=== PATIENT | female | born 1995 ===

== ENCOUNTER 2022-04-13 16:55 | Emergency (ER) | payer SELFPAY ==
--- NOTE | 2022-04-13 18:38 | Emergency Department Report ---
ED Psych HPI - General Chief Complaint: Psych Stated Complaint: MENTAL HEALTH Time Seen by Provider: 04/13/22 18:18 Source: patient Mode of arrival: Ambulatory Limitations: Language Barrier (Kazakh-speaking helper/driver used) - History of Present Illness Initial Comments: 26-year-old female who is 15 weeks with her first child presents to the hospital for psychiatric evaluation after she expressed depression with suicidal ideation at her BUILDING SUPERINTENDENT appointment today. Medical records from OB clinic reviewed. at her BUILDING SUPERINTENDENT appointment today she was diagnosed with acute pyelonephritis, trichomonas, and vaginitis. She was discharged on Augmentin twice daily x5 days, Flagyl 500 mg twice daily x7 days. Patient was previously prescribed the following meds on April 01: Augmentin twice daily x7 days, terconazole 0.4% vaginal cream nightly x7 nights, and received IM dose of Rocephin. She has estimated gestational age of 15 weeks and 4 days and heart rate of 151. Pt has had ultrasounds performed during this and has several documented visits. Today patient endorsed suicidal ideation with plan to hang herself and has previous attempts in the past. She has not been diagnosed with a mental illness in the past. Patient states he felt a little depressed this morning and had thoughts of suicide but denies plan to hang herself. Patient denies suicidal ideation at this time. She denies physical complaints ob clinic [facility] - Related Data Allergies Allergy/AdvReac Type Severity Reaction Status Date / Time No Known Allergies Allergy Verified 04/13/22 22:32 ED Review of Systems ROS: Stated complaint: MENTAL HEALTH Other details as noted in HPI ED Past Medical Hx - Past Medical History Previous Medical History?: No ED Physical Exam - General Limitations: No Limitations, Language Barrier - Other Other exam information: General: No acute distress Head: Atraumatic Eyes: normal appearance ENT: Moist mucous membranes Neck: Normal appearance, no midline tenderness Chest: Clear to auscultation bilaterally CV: Regular rate and rhythm Abdomen: Soft, normal bowel sounds, nontender, nondistended, no rebound or guarding Back: Normal inspection Extremity: Normal inspection, full range of motion Neuro: Alert O x 3, no facial asymmetry, speech clear, no gross motor sensory deficit Psych: Appropriate behavior Skin: No rash ED Course Vital Signs 04/13/22 04/13/22 17:27 20:30 Temperature 98.1 F 98.5 F Pulse Rate 76 64 Respiratory 16 6 L Rate Blood Pressure 110/60 Blood Pressure 117/64 [Left] O2 Sat by Pulse 100 100 Oximetry ED Medical Decision Making - Lab Data Result diagrams: 04/13/22 18:20 04/13/22 18:20 Lab Results 04/13/22 04/13/22 04/13/22 Range/Units 18:20 18:20 18:20 WBC 10.3 (4.5-11.0) K/mm3 RBC 4.19 (3.65-5.03) M/mm3 Hgb 12.2 (10.1-14.3) gm/dl Hct 35.6 (30.3-42.9) % MCV 85 (79-97) fl MCH 29 (28-32) pg MCHC 34 (30-34) % RDW 13.5 (13.2-15.2) % Plt Count 210 (140-440) K/mm3 Lymph % (Auto) 20.1 (13.4-35.0) % Ray % (Auto) 4.8 (0.0-7.3) % Eos % (Auto) 3.0 (0.0-4.3) % Baso % (Auto) 0.4 (0.0-1.8) % Lymph # (Auto) 2.1 (1.2-5.4) K/mm3 Ray # (Auto) 0.5 (0.0-0.8) K/mm3 Eos # (Auto) 0.3 (0.0-0.4) K/mm3 Baso # (Auto) 0.0 (0.0-0.1) K/mm3 Seg Neutrophils % 71.7 H (40.0-70.0) % Seg Neutrophils # 7.4 (1.8-7.7) K/mm3 Sodium (137-145) mmol/L Potassium (3.6-5.0) mmol/L Chloride (98-107) mmol/L Carbon Dioxide (22-30) mmol/L Anion Gap mmol/L BUN (7-17) mg/dL Creatinine (0.6-1.2) mg/dL Estimated GFR ml/min BUN/Creatinine Ratio % Glucose (65-100) mg/dL Calcium (8.4-10.2) mg/dL HCG, Quant (0-4) mIU/mL Urine Color Yellow (Yellow) Urine Turbidity Turbid (Clear) Urine pH 6.0 (5.0-7.0) Ur Specific [place] 1.016 (1.003-1.030) Urine Protein 30 mg/dl (Negative) mg/dL Urine Glucose (UA) Neg (Negative) mg/dL Urine Ketones Neg (Negative) mg/dL Urine Blood Neg (Negative) Urine Nitrite Neg (Negative) Urine Bilirubin Neg (Negative) Urine Urobilinogen < 2 (<2.0) mg/dL Ur Leukocyte Esterase Lg (Negative) Urine WBC (Auto) 42.0 H (0.0-6.0) /HPF Urine RBC (Auto) 16.0 (0.0-6.0) /HPF U Epithel Cells (Auto) 78.0 H (0-13.0) /HPF Urine Bacteria (Auto) 2+ (Negative) /HPF Urine WBC Clumps 2+ /HPF Urine Mucus Few /HPF Urine Yeast (Budding) 3+ /HPF Salicylates (2.8-20.0) mg/dL Urine Opiates Screen Negative Urine Methadone Screen Negative Acetaminophen (10.0-30.0) ug/mL Ur Barbiturates Screen Negative Ur Phencyclidine Scrn Negative Ur Amphetamines Screen Negative U Benzodiazepines Scrn Negative Urine Cocaine Screen Negative U Marijuana (THC) Screen Negative Drugs of Abuse Note Disclamer Plasma/Serum Alcohol (0-0.07) % 04/13/22 04/13/22 04/13/22 Range/Units 18:20 18:20 18:20 WBC (4.5-11.0) K/mm3 RBC (3.65-5.03) M/mm3 Hgb (10.1-14.3) gm/dl Hct (30.3-42.9) % MCV (79-97) fl MCH (28-32) pg MCHC (30-34) % RDW (13.2-15.2) % Plt Count (140-440) K/mm3 Lymph % (Auto) (13.4-35.0) % Ray % (Auto) (0.0-7.3) % Eos % (Auto) (0.0-4.3) % Baso % (Auto) (0.0-1.8) % Lymph # (Auto) (1.2-5.4) K/mm3 Ray # (Auto) (0.0-0.8) K/mm3 Eos # (Auto) (0.0-0.4) K/mm3 Baso # (Auto) (0.0-0.1) K/mm3 Seg Neutrophils % (40.0-70.0) % Seg Neutrophils # (1.8-7.7) K/mm3 Sodium 136 L (137-145) mmol/L Potassium 4.7 (3.6-5.0) mmol/L Chloride 102.3 (98-107) mmol/L Carbon Dioxide 22 (22-30) mmol/L Anion Gap 16 mmol/L BUN 8 (7-17) mg/dL Creatinine 0.5 L (0.6-1.2) mg/dL Estimated GFR > 60 ml/min BUN/Creatinine Ratio 16 % Glucose 88 (65-100) mg/dL Calcium 9.9 (8.4-10.2) mg/dL HCG, Quant 75824 H (0-4) mIU/mL Urine Color (Yellow) Urine Turbidity (Clear) Urine pH (5.0-7.0) Ur Specific [place] (1.003-1.030) Urine Protein (Negative) mg/dL Urine Glucose (UA) (Negative) mg/dL Urine Ketones (Negative) mg/dL Urine Blood (Negative) Urine Nitrite (Negative) Urine Bilirubin (Negative) Urine Urobilinogen (<2.0) mg/dL Ur Leukocyte Esterase (Negative) Urine WBC (Auto) (0.0-6.0) /HPF Urine RBC (Auto) (0.0-6.0) /HPF U Epithel Cells (Auto) (0-13.0) /HPF Urine Bacteria (Auto) (Negative) /HPF Urine WBC Clumps /HPF Urine Mucus /HPF Urine Yeast (Budding) /HPF Salicylates < 0.3 L (2.8-20.0) mg/dL Urine Opiates Screen Urine Methadone Screen Acetaminophen (10.0-30.0) ug/mL Ur Barbiturates Screen Ur Phencyclidine Scrn Ur Amphetamines Screen U Benzodiazepines Scrn Urine Cocaine Screen U Marijuana (THC) Screen Drugs of Abuse Note Plasma/Serum Alcohol (0-0.07) % 04/13/22 04/13/22 Range/Units 18:20 18:20 WBC (4.5-11.0) K/mm3 RBC (3.65-5.03) M/mm3 Hgb (10.1-14.3) gm/dl Hct (30.3-42.9) % MCV (79-97) fl MCH (28-32) pg MCHC (30-34) % RDW (13.2-15.2) % Plt Count (140-440) K/mm3 Lymph % (Auto) (13.4-35.0) % Ray % (Auto) (0.0-7.3) % Eos % (Auto) (0.0-4.3) % Baso % (Auto) (0.0-1.8) % Lymph # (Auto) (1.2-5.4) K/mm3 Ray # (Auto) (0.0-0.8) K/mm3 Eos # (Auto) (0.0-0.4) K/mm3 Baso # (Auto) (0.0-0.1) K/mm3 Seg Neutrophils % (40.0-70.0) % Seg Neutrophils # (1.8-7.7) K/mm3 Sodium (137-145) mmol/L Potassium (3.6-5.0) mmol/L Chloride (98-107) mmol/L Carbon Dioxide (22-30) mmol/L Anion Gap mmol/L BUN (7-17) mg/dL Creatinine (0.6-1.2) mg/dL Estimated GFR ml/min BUN/Creatinine Ratio % Glucose (65-100) mg/dL Calcium (8.4-10.2) mg/dL HCG, Quant (0-4) mIU/mL Urine Color (Yellow) Urine Turbidity (Clear) Urine pH (5.0-7.0) Ur Specific [place] (1.003-1.030) Urine Protein (Negative) mg/dL Urine Glucose (UA) (Negative) mg/dL Urine Ketones (Negative) mg/dL Urine Blood (Negative) Urine Nitrite (Negative) Urine Bilirubin (Negative) Urine Urobilinogen (<2.0) mg/dL Ur Leukocyte Esterase (Negative) Urine WBC (Auto) (0.0-6.0) /HPF Urine RBC (Auto) (0.0-6.0) /HPF U Epithel Cells (Auto) (0-13.0) /HPF Urine Bacteria (Auto) (Negative) /HPF Urine WBC Clumps /HPF Urine Mucus /HPF Urine Yeast (Budding) /HPF Salicylates (2.8-20.0) mg/dL Urine Opiates Screen Urine Methadone Screen Acetaminophen 5.0 L (10.0-30.0) ug/mL Ur Barbiturates Screen Ur Phencyclidine Scrn Ur Amphetamines Screen U Benzodiazepines Scrn Urine Cocaine Screen U Marijuana (THC) Screen Drugs of Abuse Note Plasma/Serum Alcohol < 0.01 (0-0.07) % - Medical Decision Making 26-year-old female presents to the [facility] clinic for suicidal ideation with plan. Patient has received recent OB examination without any documented abnormality of the fetus. Patient was prescribed antibiotics for vaginitis and UTI by her PRODUCT DESIGN SPECIALIST doctor. These medications will be continued during her ED stay. Patient is medically cleared and awaiting psychiatric evaluation Critical Care Time: No Critical care attestation.: If time is entered above; I have spent that time in minutes in the direct care of this critically ill patient, excluding procedure time. ED Disposition Clinical Impression: Suicidal ideation, Depression, 15 weeks gestation of , Vaginitis, UTI (urinary tract infection), Medical clearance for psychiatric admission Disposition: 30 STILL A PATIENT Is pt being admited?: No Condition: Stable
[2022-04-13 19:12] LABS: Blood Urea Nitrogen 8 mg/dL (7-17); Calcium 9.9 mg/dL (8.4-10.2); Hemolysis Index 16
[2022-04-13 19:19] LABS: BUN/Creatinine Ratio 16
[2022-04-13 19:32] LABS: Bilirubin,Urine NEG (Negative); Blood,Urine NEG (Negative); Color,Urine Yellow (Yellow); Urobilinogen,Urine < 2 mg/dL (<2.0)
[2022-04-13 19:35] LABS: Bacteria,Urine 2+ /HPF (Negative); Mucus,Urine FEW /HPF
[2022-04-13 19:37] LABS: Basophils % (Auto) 0.4 % (0.0-1.8); Eosinophils # (Auto) 0.3 K/mm3 (0.0-0.4); Hematocrit 35.6 % (30.3-42.9); Hemoglobin 12.2 gm/dl (10.1-14.3); Lymphocytes # (Auto) 2.1 K/mm3 (1.2-5.4); Lymphocytes % (Auto) 20.1 % (13.4-35.0); Mean Corpuscular HGB Conc 34 % (30-34); Mean Corpuscular Volume 85 fl (79-97); Monocytes # (Auto) 0.5 K/mm3 (0.0-0.8); Monocytes % (Auto) 4.8 % (0.0-7.3); Platelet Count 210 K/mm3 (140-440); Red Blood Count 4.19 M/mm3 (3.65-5.03); Red Cell Distribution Width 13.5 % (13.2-15.2)
[2022-04-13 20:01] LABS: Amphetamine Screen,Urine Negative; Benzodiazepines Screen,Urine Negative; Cannabinoid Screen,Urine Negative; Cocaine Screen,Urine Negative; Methadone Screen,Urine Negative; Opiate Screen,Urine Negative
[2022-04-13] MEDS ORDERED: metroNIDAZOLE 500 MG TAB PO SCH (23:00)
[2022-04-13] MEDS: AMOXICILLIN/K CLAV 875/125MG TAB PO SCH (23:17)
[2022-04-13] MEDS: metroNIDAZOLE 500 MG TAB PO SCH (23:26)
[2022-04-14] MEDS: AMOXICILLIN/K CLAV 875/125MG TAB PO SCH (11:28)
[2022-04-14] MEDS: metroNIDAZOLE 500 MG TAB PO SCH (11:28)
--- NOTE | 2022-04-14 12:24 | Consultation ---
History of Present Illness - Reason for Consult Consult date: 04/14/22 Reason for consult: SI - History of Present Psychiatric Illness The patent was seen today. She is not forth coming about what brought her to the hospital. She says she went to the clinic after getting lab results in her email. The patient denies SI/HI or ever feeling that way. She denies feeling de pressed. She did say she had a past attempt about 4 years ago. The patient denies any past psych diagnoses, being on any meds or hospital admissions. She denies any illicit drug use. The patient says she is and initially said she did not have a good support system, she then changes it and says she does. After reading the patient presenting complaints, it appears that she told several people that she was depressed, and suicidal with a plan to hang herself. REVIEW OF SYSTEMS Constitutional: Negative for weight loss ENT: Negative for stridor Respiratory: Negative for cough or hemoptysis All other systems reviewed and are negative MENTAL STATUS EXAMINATION General Appearance and Behavior: Age appropriate, good hygiene, wearing ap propriate clothes, good eye contact, calm, playful, cooperative Cooperation: Participating/engaged Psychomotor Behavior: Psychomotor normal Mood: depression Affect and affective range: congruent with stated mood Thought Process: goal directed Thought Content: reality oriented Speech: Normal tone and pace Suicidal Ideation: Denies Homicidal Ideation: Denies Hallucinations: Denies Delusions: None elicited Impulse Control: Normal Insight and Judgment: Limited insight and judgment Memory: Normal Attention: Attentive Orientation: Alert, oriented x 3 Assessment and Plan (1) Major Depressive Disorder Treatment Plan 1013 Zoloft 25mg po daily Risks, benefits and alternatives of medications discussed with the patient, questions answered and consent obtained from patient. PSYCHOTHERAPY: Supportive psychotherapy provided MEDICAL: Per primary team DELIRIUM PRECAUTIONS: Please re-orient patient frequently, keep lights on during the day, and minimize benzodiazepines and opiates as these medications could worsen patient's confusion. HEAD TELLER: Defer to primary DISPOSITION: recommend acute psychiatric inpatient treatment Will follow. Thank you for the consult. Please contact with any questions and/or concerns. Case staffed with Dr. Fsiher Medications and Allergies Allergies Allergy/AdvReac Type Severity Reaction Status Date / Time No Known Allergies Allergy Verified 04/13/22 22:32 Active Meds: Active Medications Amoxicillin/Clavulanate Potassium (Amoxicillin/K Clav 875/125mg Tab) 1 each PO BID [facility]; Protocol Stop: 04/20/22 10:01 Last Admin: 04/14/22 11:28 Dose: 1 each Metronidazole (Metronidazole 500 Mg Tab) 500 mg PO BID DIANNE; Protocol Stop: 04/20/22 10:01 Last Admin: 04/14/22 11:28 Dose: 500 mg Mental Status Exam - Vital signs Last Vital Signs Temp 98.6 F 04/14/22 09:49 Pulse 74 04/14/22 09:49 Resp 16 04/14/22 09:49 BP 110/63 04/14/22 09:49 Pulse Ox 100 04/14/22 09:49 Results Result Diagrams: 04/13/22 18:20 04/13/22 18:20 Abnormal lab results 04/13/22 04/13/22 04/13/22 Range/Units 18:20 18:20 18:20 Seg Neutrophils % 71.7 H (40.0-70.0) % Sodium 136 L (137-145) mmol/L Creatinine 0.5 L (0.6-1.2) mg/dL HCG, Quant (0-4) mIU/mL Urine WBC (Auto) 42.0 H (0.0-6.0) /HPF U Epithel Cells (Auto) 78.0 H (0-13.0) /HPF Salicylates (2.8-20.0) mg/dL Acetaminophen (10.0-30.0) ug/mL 04/13/22 04/13/22 04/13/22 Range/Units 18:20 18:20 18:20 Seg Neutrophils % (40.0-70.0) % Sodium (137-145) mmol/L Creatinine (0.6-1.2) mg/dL HCG, Quant 34243 H (0-4) mIU/mL Urine WBC (Auto) (0.0-6.0) /HPF U Epithel Cells (Auto) (0-13.0) /HPF Salicylates < 0.3 L (2.8-20.0) mg/dL Acetaminophen 5.0 L (10.0-30.0) ug/mL All other labs normal.
[2022-04-14] MEDS: SERTRALINE 25 MG TAB PO SCH (17:03)
[2022-04-14] MEDS ORDERED: metroNIDAZOLE 500 MG TAB PO SCH (23:15)
[2022-04-15] MEDS: AMOXICILLIN/K CLAV 875/125MG TAB PO SCH ×2 (07:36→09:58)
[2022-04-15] MEDS: metroNIDAZOLE 500 MG TAB PO SCH ×2 (07:36→09:59)
[2022-04-15 08:49] VITALS: BP 126/53
[2022-04-15] MEDS: SERTRALINE 25 MG TAB PO SCH (09:59)
--- NOTE | 2022-04-15 12:13 | Progress Note ---
Subjective - Reason for Consult Consult date: 04/15/22 Reason for consult: mental health evaluation - Chief Complaint Chief complaint: Patient is a 26 year old without previous psychiatric diagnoses naive to psychotropic medication. Patient was seen today and a chainstitch hemmer was used throughout the interview. Patient was alert and oriented x3 and cooperative throughout the interview. Patient reports she came here because she had a crisis in a clinic. Patient reports she was asked questions about how she feels at the clinic and she got upset and started crying. Patient denies feeling depressed, denies feelings of hopelessness or worthlessness, denies changes in activity level. Patient reports good sleep and good appetite prior to arriving here. Patient denies previous suicide attempts, but reports self-harming 4 years ago without intent to end her life. Patient reports passive suicide ideation 1 month ago but denies history of active SI. Patient reports protective factors of her baby, herself, and her mother. Patient reports good social support of her and her sister. Patient denies recreational drug use. Patient reports being open to continuing medication and seeking counseling in an outpatient setting. PAST PSYCHIATRIC HISTORY: Diagnoses: Denies Suicide attempts or Self-harm behavior: Self-harm 4 years ago w/o intent to end life Prior psychiatric hospitalizations: Denies Substance Abuse history: Denies Previous psychiatric medications tried: Denies Outpatient treatment: Denies SOCIAL HISTORY Marital Status: Living Arrangements: With family Employment Status: Employed Access to guns/weapons: Denies Education: 8th grade History of Abuse: Denies Legal History: Denies MENTAL STATUS EXAMINATION General Appearance and Behavior: Age appropriate, good hygiene, wearing appropriate clothes, good eye contact, calm, pleasant Cooperation: Participating/engaged, cooperative Psychomotor Behavior: Psychomotor normal Mood: not depressed Affect and affective range: congruent with stated mood, calm Thought Process: goal directed Thought Content: reality oriented Speech: Normal tone and pace Suicidal Ideation: Denies Homicidal Ideation: Denies Hallucinations: Denies Delusions: None elicited Impulse Control: Normal Insight and Judgment: Normal insight and judgment Memory: Normal Attention: Attentive Orientation: Alert, oriented x 3 ASSESSMENT (1) Major Depressive Disorder Treatment Plan Rescind 1013 Continue Zoloft 25mg po daily Risks, benefits and alternatives of medications discussed with the patient, questions answered and consent obtained from patient. PSYCHOTHERAPY: Supportive psychotherapy provided MEDICAL: Per primary team DELIRIUM PRECAUTIONS: Please re-orient patient frequently, keep lights on during the day, and minimize benzodiazepines and opiates as these medications could worsen patient's confusion. STONE SETTER METAL OPTICAL FRAMES: Defer to primary DISPOSITION: Do not recommend acute inpatient psychiatric hospitalization at this time. Mental health consulting manager will provide outpatient psychiatric resources. Will sign off. Thank you for the consult. Please contact with any questions and/or concerns. Case staffed with Dr. Fisher Mental Status Exam - Vital signs Last Vital Signs Temp 98.9 F 04/15/22 08:48 Pulse 98 H 04/15/22 08:48 Resp 14 04/15/22 10:37 BP 126/53 04/15/22 08:48 Pulse Ox 100 04/15/22 10:37
--- NOTE | 2022-04-15 12:30 | Emergency Department Report ---
Blank Doc - Documentation Documentation: 26-year female currently 15 weeks gestation of presents to the [facility] with suicidal ideation and depression. Patient has been in the ED for several days and has been calm and cooperative. Patient was assessed by mental health provider today and deemed stable for discharge with recommendation to present 1013. Patient was diagnosed with UTI and vaginitis prior to ED arrival and her recently prescribed medications were provided here in the ED. Patient will be discharged on Zoloft as recommended by psychiatry and she states that her recently prescribed medications for vaginitis and UTI are at the pharmacy awaiting pickup.
== END 2022-04-15 13:50 | disposition home or self-care (01) ==
LOC: ED 16:55 → EEVIPCON 16:55 → ED 04-15 13:50
DX: Z04.6 Encounter for general psychiatric examination, requested by authority (principal); O23.592 Infection of other part of genital tract in pregnancy, second trimester; N39.0 Urinary tract infection, site not specified; Z20.822 Contact with and (suspected) exposure to COVID-19; O99.342 Other mental disorders complicating pregnancy, second trimester; F32.9 Major depressive disorder, single episode, unspecified; Z79.899 Other long term (current) drug therapy; Z3A.15 15 weeks gestation of pregnancy
CPT/HCPCS: 36415; 80048; 80307; 81001; 84702; 85025; 87086; 99284; U0003; 80320; G0480